=== PATIENT | male | born 2000 | race Caucasian/White ===

== ENCOUNTER 2021-12-05 17:38 | Emergency (ER) | payer OTHER ==
--- NOTE | 2021-12-05 18:05 | ED Physician Documentation ---
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 No history of abdominal surgeries. Starting Saturday morning he was having a lot of stomach upset and nausea and vomiting. At that point he related it to heavy night of drinking on Saturday but when the symptoms were persistent through yesterday and today that seemed more atypical and starting today has developed increasing right mid lateral abdominal pain that was worse 2 hours ago and is now somewhat better. He continues to be nauseous. No urinary complaints or hematuria. Normal bowel movements. Review of Systems Ten Systems: 10 systems reviewed and negative Constitutional: denies: Fever, Chills Cardiac: denies: Chest pain / pressure, Palpitations Respiratory: denies: Dyspnea, Cough PD PAST MEDICAL HISTORY - Allergies Allergies/Adverse Reactions: Allergies Allergy/AdvReac Type Severity Reaction Status Date / Time No Known Drug Allergies Allergy Verified 12/05/21 17:46 PD ED PE NORMAL - Vitals Vital signs reviewed: Yes - General General: Alert and oriented X 3, No acute distress - Cardiac Cardiac: RRR, No murmur - Respiratory Respiratory: No respiratory distress, Clear bilaterally - Abdomen Abdomen: Normal bowel sounds, Soft, Non tender - Back Back: No CVA TTP, No spinal TTP - Derm Derm: Normal color, Warm and dry - Extremities Extremities: No edema, No calf tenderness / cord - Neuro Neuro: Alert and oriented X 3, Normal speech Results - Vitals Vitals: Vital Signs - 24 hr 12/05/21 12/05/21 12/05/21 17:42 19:46 21:00 Temperature 36.5 C Heart Rate 73 70 64 Respiratory 14 16 16 Rate Blood Pressure 129/75 139/51 H 126/61 O2 Saturation 100 98 98 Oxygen O2 Source Room air - Labs Labs: Laboratory Tests 12/05/21 12/05/21 12/05/21 17:55 17:55 18:34 WBC 8.1 RBC 5.14 Hgb 15.4 Hct 45.9 MCV 89.3 MCH 30.0 MCHC 33.6 RDW 13.2 Plt Count 253 MPV 10.0 Neut # (Auto) 4.2 Lymph # (Auto) 3.1 [place] # (Auto) 0.7 Eos # (Auto) 0.1 Baso # (Auto) 0.0 Absolute Nucleated RBC 0.00 Nucleated RBC % 0.0 Sodium 134 L Potassium 4.1 Chloride 99 L Carbon Dioxide 28 Anion Gap 7.0 BUN 13 Creatinine 1.0 Estimated GFR (MDRD) 94 Glucose 52 L* POC Whole Bld Glucose Calcium 9.1 Total Bilirubin 0.4 AST 48 H ALT 34 Alkaline Phosphatase 68 Total Protein 7.5 Albumin 4.2 Globulin 3.3 Albumin/Globulin Ratio 1.3 Lipase 33 Urine Color YELLOW Urine Clarity HAZY Urine pH 6.0 Ur Specific [place] <=1.005 Urine Protein NEGATIVE Urine Glucose (UA) NEGATIVE Urine Ketones NEGATIVE Urine Occult Blood NEGATIVE Urine Nitrite NEGATIVE Urine Bilirubin NEGATIVE Urine Urobilinogen 0.2 (NORMAL) Ur Leukocyte Esterase NEGATIVE Urine RBC None Seen Urine WBC 0-3 Ur Squamous Epith Cells RARE Squamous Urine Bacteria None Seen Ur Microscopic Review INDICATED Urine Culture Comments NOT INDICATED 12/05/21 12/05/21 12/05/21 18:54 19:17 19:59 WBC RBC Hgb Hct MCV MCH MCHC RDW Plt Count MPV Neut # (Auto) Lymph # (Auto) [place] # (Auto) Eos # (Auto) Baso # (Auto) Absolute Nucleated RBC Nucleated RBC % Sodium Potassium Chloride Carbon Dioxide Anion Gap BUN Creatinine Estimated GFR (MDRD) Glucose POC Whole Bld Glucose 68 L 68 L 96 Calcium Total Bilirubin AST ALT Alkaline Phosphatase Total Protein Albumin Globulin Albumin/Globulin Ratio Lipase Urine Color Urine Clarity Urine pH Ur Specific Dexter Urine Protein Urine Glucose (UA) Urine Ketones Urine Occult Blood Urine Nitrite Urine Bilirubin Urine Urobilinogen Ur Leukocyte Esterase Urine RBC Urine WBC Ur Squamous Epith Cells Urine Bacteria Ur Microscopic Review Urine Culture Comments 12/05/21 21:07 WBC RBC Hgb Hct MCV MCH MCHC RDW Plt Count MPV Neut # (Auto) Lymph # (Auto) [place] # (Auto) Eos # (Auto) Baso # (Auto) Absolute Nucleated RBC Nucleated RBC % Sodium Potassium Chloride Carbon Dioxide Anion Gap BUN Creatinine Estimated GFR (MDRD) Glucose POC Whole Bld Glucose 92 Calcium Total Bilirubin AST ALT Alkaline Phosphatase Total Protein Albumin Globulin Albumin/Globulin Ratio Lipase Urine Color Urine Clarity Urine pH Ur Specific [place] Urine Protein Urine Glucose (UA) Urine Ketones Urine Occult Blood Urine Nitrite Urine Bilirubin Urine Urobilinogen Ur Leukocyte Esterase Urine RBC Urine WBC Ur Squamous Epith Cells Urine Bacteria Ur Microscopic Review Urine Culture Comments PD MEDICAL DECISION MAKING - ED course ED course: 21-year-old gentleman had a heavy night of drinking couple nights ago and then the next day was feeling poorly, he presumed from a hangover but when symptoms persisted and now developed some right-sided abdominal pain he seeks evaluation. His abdomen is very benign. Given the site of pain, renal colic was considered but he has no hematuria and a negative CT. His labs were normal with the exception of a very mildly elevated AST and a blood sugar that was initially 52 and treated. He subsequently ate here and his blood sugar remained up. He was observed for a while to make sure he did not develop recurrent hypoglycemia. Departure - Departure Disposition: 01 Home, Self Care Clinical Impression: Hypoglycemia Abdominal pain Qualifiers: Abdominal location: right upper quadrant Qualified Code(s): R10.11 - Right upper quadrant pain Condition: Good Record reviewed to determine appropriate education?: Yes Instructions: ED Abdominal Pain Unkn Cause Male Comments: Thankfully no serious cause of your abdominal pain was identified. We did note that on your labs your liver was very mildly inflamed and you had a low blood sugar. Sometimes if you have been drinking a lot and had not eaten for a day since the liver stores your excess blood sugar, your blood sugar can go down. If you do not feel better tomorrow please return for reevaluation Around 7 or 8 AM, otherwise you can eat a normal diet and abstain from alcohol for a while, if you do take up drinking again, not to excess.
[2021-12-05 18:07] LABS: BASOPHILS % (AUTO) 0.4 %; EOSINOPHILS # (AUTO) 0.1 10^3/uL (0.0-0.7); EOSINOPHILS % (AUTO) 1.6 %; HCT - HEMATOCRIT 45.9 % (42.0-52.0); HGB - HEMOGLOBIN 15.4 g/dL (14.0-18.0); LYMPHOCYTES # (AUTO) 3.1 10^3/uL (1.5-3.5); LYMPHOCYTES % (AUTO) 37.9 %; MEAN CORPUSCULAR HGB CONC 33.6 g/dL (32.0-36.0); MEAN CORPUSCULAR VOLUME 89.3 fL (80.0-94.0); MONOCYTES # (AUTO) 0.7 10^3/uL (0.0-1.0); MONOCYTES % (AUTO) 8.3 %; NEUTROPHILS # (AUTO) 4.2 10^3/uL (1.5-6.6); NEUTROPHILS % (AUTO) 51.7 %; PLT - PLATELET COUNT 253 10^3/uL (130-450); RED BLOOD COUNT 5.14 10^6/uL (4.70-6.10); RED CELL DISTRIBUTION WIDTH 13.2 % (12.0-15.0); WHITE BLOOD COUNT 8.1 x10^3/uL (4.8-10.8)
[2021-12-05 18:21] LABS: ALBUMIN 4.2 g/dL (3.2-5.5); ALBUMIN/GLOBULIN RATIO 1.3 (1.0-2.2); BILIRUBIN,TOTAL 0.4 mg/dL (0.2-1.0); CALCIUM 9.1 mg/dL (8.5-10.3); POTASSIUM 4.1 mmol/L (3.5-5.0); TOTAL PROTEIN 7.5 g/dL (6.7-8.2)
[2021-12-05] MEDS ORDERED: DEXTROSE 50% ABBOJECT 25 GM/50 ML SYRINGE IVP STA ×2 (18:26→19:18)
[2021-12-05] MEDS ORDERED: SODIUM CHLORIDE 0.9% 1,000 ML IV STA (18:26)
--- NOTE | 2021-12-05 18:32 | CT Report ---
PROCEDURE: CT abdomen pelvis without contrast INDICATIONS: r flank/abd pain TECHNIQUE: Noncontrast 5 mm thick sections acquired from the diaphragms to the symphysis. 5 mm coronal and sagi ttal reformats were then performed. For radiation dose reduction, the following was used: automated exposure control, adjustment of mA and/or kV according to patient size. COMPARISON: None. FINDINGS: Image quality: Excellent. ABDOMEN: Lung bases: Lung bases are clear. Heart size is normal. Solid organs: Liver and spleen are normal in size. Gallbladder unremarkable. Pancreas is normal in contours. No adrenal nodules. Kidneys are normal in size, without hydronephrosis or nephrolithiasi s. Peritoneum and bowel: Unenhanced bowel loops demonstrate normal wall thickness and caliber. No free fluid or air. Nodes and vessels: No retroperitoneal or mesenteric adenopathy by size criteria. Aorta and inferior vena cava are normal in caliber. Miscellaneous: No ventral hernias. PELVIS: Genitourinary: Bladder wall thickness is normal. Miscellaneous: No inguinal hernias or adenopathy. Bones: No suspicious bony lesions. No vertebral body compression fractures. IMPRESSION: 1. Unremarkable noncontrast CT abdomen and pelvis. No evidence of renal calculi, hydronephrosis. Reviewed by: Otto Foy MD on 12/05/2021 5:31 PM ANGELINA Approved by: Otto Foy MD on 12/05/2021 5:31 PM AKGENNY Station ID: [id number]
[2021-12-05 18:38] LABS: BILIRUBIN,URINE NEGATIVE (NEGATIVE); GLUCOSE, URINE (UA) NEGATIVE (NEGATIVE); KETONES,URINE (UA) NEGATIVE (NEGATIVE); LEUKOCYTE ESTERASE, URINE NEGATIVE (NEGATIVE); NITRITE,URINE NEGATIVE (NEGATIVE); OCCULT BLOOD,URINE NEGATIVE (NEGATIVE); PROTEIN,URINE NEGATIVE (NEGATIVE); UROBILINOGEN,URINE 0.2 (NORMAL) E.U./dL (NORMAL)
[2021-12-05] MEDS ORDERED: DEXTROSE 50% ABBOJECT 25 GM/50 ML SYRINGE ONE (18:41)
[2021-12-05 18:43] LABS: CLARITY,URINE HAZY (CLEAR)
[2021-12-05 18:52] LABS: BACTERIA,URINE None Seen /HPF (None Seen); RBC,URINE None Seen /HPF (0-5); SQUAMOUS EPITHELIAL CELL,UR RARE Squamous (<= Few); WBC,URINE 0-3 /HPF (0-3)
[2021-12-05 21:28] VITALS: BP 125/62
== END 2021-12-05 21:33 | disposition home or self-care (01) ==
LOC: ED 17:38
DX: E16.2 Hypoglycemia, unspecified (principal); R10.11 Right upper quadrant pain
CPT/HCPCS: 36415; 80053; 81001; 81003; 83690; 85025; 87086; 96361; 96374; 96376; 99282

== ENCOUNTER 2023-03-10 12:06 | Emergency (ER) | payer OTHER ==
[2023-03-10 12:29] VITALS: BP 124/57; O2SAT 99
[2023-03-10 13:16] LABS: BASOPHILS % (AUTO) 0.6 %; EOSINOPHILS # (AUTO) 0.1 10^3/uL (0.0-0.7); EOSINOPHILS % (AUTO) 1.5 %; HCT - HEMATOCRIT 46.9 % (42.0-52.0); HGB - HEMOGLOBIN 15.2 g/dL (14.0-18.0); LYMPHOCYTES # (AUTO) 1.7 10^3/uL (1.5-3.5); MEAN CORPUSCULAR HEMOGLOBIN 29.6 pg (27.0-31.0); MEAN CORPUSCULAR HGB CONC 32.4 g/dL (32.0-36.0); MEAN CORPUSCULAR VOLUME 91.4 fL (80.0-94.0); MEAN PLATELET VOLUME 9.6 fL (7.4-11.4); MONOCYTES # (AUTO) 0.4 10^3/uL (0.0-1.0); MONOCYTES % (AUTO) 7.1 %; NEUTROPHILS % (AUTO) 57.6 %; PLT - PLATELET COUNT 222 10^3/uL (130-450); RED BLOOD COUNT 5.13 10^6/uL (4.70-6.10); RED CELL DISTRIBUTION WIDTH 11.9 % (12.0-15.0); WHITE BLOOD COUNT 5.2 x10^3/uL (4.8-10.8)
[2023-03-10 13:22] LABS: PARTIAL THROMBOPLASTIN TIME 28.2 secs (24.9-33.3)
[2023-03-10 13:26] LABS: INR 1.3 (0.8-1.2); PT - PROTHROMBIN TIME 13.7 secs (9.9-12.6)
[2023-03-10 13:28] LABS: ALBUMIN 4.7 g/dL (3.2-5.5); ALBUMIN/GLOBULIN RATIO 1.9 (1.0-2.2); BILIRUBIN,TOTAL 0.4 mg/dL (0.2-1.0); CALCIUM 9.8 mg/dL (8.5-10.3); CREATININE 1.2 mg/dL (0.6-1.3); TOTAL PROTEIN 7.2 g/dL (6.4-8.9)
--- NOTE | 2023-03-10 14:15 | ED Physician Documentation ---
PD HPI GI BLEED - Stated complaint Stated Complaint: GI - Chief complaint Chief Complaint: Abd Pain - History obtained from History obtained from: Patient - Additional information Additional information: The patient comes to the emergency department with chief complaint of blood per rectum this morning. He states he woke up and felt as though he had to have a bowel movement but when he went to the bathroom, he could not defecate but noticed a splatter of blood had come out of his anus and sprayed in the toilet bowl. He wiped and noticed a spot of blood on the toilet paper. He called his medical director/head team physician through the [facility] who told him to come to the emergency department to get checked out. The patient states he has not had any further episodes. He was feeling fine yesterday. He denies any abdominal pain. No constipation. He was not known to have any hemorrhoids previously. The patient denies any nausea or vomiting. No fevers or chills. He is not on any anticoagulants and has no history of coagulopathy. No other complaints at this time. PD PAST MEDICAL HISTORY - Past Medical History Past Medical History: Yes - Past Surgical History Past Surgical History: No - Present Medications Home Medications: Ambulatory Orders Medication Instructions Recorded Confirmed Finasteride [Propecia] 1 mg PO DAILY 03/10/23 03/10/23 - Allergies Allergies/Adverse Reactions: Allergies Allergy/AdvReac Type Severity Reaction Status Date / Time No Known Drug Allergies Allergy Verified 03/10/23 12:28 - Social History Does the pt smoke?: No Smoking Status: Never smoker Does the pt drink ETOH?: No Does the pt have substance abuse?: No - Immunizations Immunizations are current?: Yes PD ED PE NORMAL - Vitals Vital signs reviewed: Yes - General General: Alert and oriented X 3, No acute distress, Well developed/nourished - HEENT HEENT: Atraumatic, PERRL, EOMI, Moist mucous membranes - Neck Neck: Supple, no meningeal sign - Cardiac Cardiac: RRR, No murmur - Respiratory Respiratory: No respiratory distress, Clear bilaterally - Abdomen Abdomen: Soft, Non tender, Non distended - Rectal Rectal: Deferred - Derm Derm: Normal color, Warm and dry, No rash - Extremities Extremities: No deformity - Neuro Neuro: Alert and oriented X 3 - Psych Psych: Normal mood, Normal affect Results - Vitals Vitals: Vital Signs - 24 hr 03/10/23 12:25 Temperature 36.6 C Heart Rate 74 Respiratory 15 Rate Blood Pressure 124/57 L O2 Saturation 99 Oxygen O2 Source Room air - Labs Labs: Laboratory Tests 03/10/23 03/10/23 03/10/23 13:08 13:08 13:08 WBC 5.2 RBC 5.13 Hgb 15.2 Hct 46.9 MCV 91.4 MCH 29.6 MCHC 32.4 RDW 11.9 L Plt Count 222 MPV 9.6 Neut # (Auto) 3.0 Lymph # (Auto) 1.7 [place] # (Auto) 0.4 Eos # (Auto) 0.1 Baso # (Auto) 0.0 Absolute Nucleated RBC 0.00 Nucleated RBC % 0.0 PT 13.7 H INR 1.3 H APTT 28.2 Sodium 138 Potassium 4.0 Chloride 101 Carbon Dioxide 33 H Anion Gap 4.0 L BUN 15 Creatinine 1.2 Estimated GFR (MDRD) 76 L Glucose 62 L Calcium 9.8 Total Bilirubin 0.4 AST 28 ALT 28 Alkaline Phosphatase 81 Total Protein 7.2 Albumin 4.7 Globulin 2.5 Albumin/Globulin Ratio 1.9 Lipase 28 PD Medical Decision Making - ED course Complexity details: reviewed results, re-evaluated patient, considered differential, d/w patient ED course: The patient was worked up with laboratory studies which were unremarkable. His symptoms were very minimal and based on the picture he showed me of the splatters on the toilet bowl and the piece of toilet paper, it appeared only a very tiny amount of blood had come out. I discussed with the patient the most likely, he has a minor amount of venous bleeding that is responsible for his symptoms. The patient has had no evidence of further bleeding and is asymptomatic, with stable vitals and unremarkable labs. He is stable for disch arge home. We have discussed the need for follow-up with his primary doctor, should he notice continuation of the symptoms for more than the next couple weeks. We have discussed the usual indications for return. Departure - Departure Disposition: 01 Home, Self Care Clinical Impression: Lower GI bleed Condition: Stable Instructions: ED Hematochezia Stable Comments: Your labs look good. Your bleeding is most likely benign and will blow over on its own. There is no evidence of a more serious condition going at this time. If your bleeding starts to get heavier or if it drags on for more than the next couple weeks, you should talk to your doctor about getting scheduled for colonoscopy.
== END 2023-03-10 14:39 | disposition home or self-care (01) ==
LOC: ED 12:06
DX: K92.2 Gastrointestinal hemorrhage, unspecified (principal)
CPT/HCPCS: 36415; 80053; 83690; 85025; 85610; 85730; 99283